=== PATIENT | male | born 1980 | race Two or more races ===

== ENCOUNTER 2025-01-03 08:00 | Emergency (ER) | payer OTHER, MEDICAID, SELFPAY ==
[2025-01-03 08:01] VITALS: BMI 34.0
[2025-01-03 08:25] VITALS: BP 145/83; PULSE 79; RESP 18; TEMP 37; O2SAT 96
--- NOTE | 2025-01-03 08:46 | EDNOTE_ITS ---
Upper Respiratory Inf. RME/HPI General Chief Complaint: Headache Stated Complaint: HEADACHE X 3 DAYS, BODY ACHES, COUGH Time Seen by Provider: 01/03/25 08:23 Arrival date/time: 01/03/25 08:00 This is a 44-year-old male that comes in with complaints of a headache, body aches, sore throat and cough that started 2 days ago. Patient states one of his coworkers had the same symptoms a couple days earlier in the week. Patient denies any past medical history. Related Data Previous Rx's ?Medication ?Instructions ?Recorded ibuprofen 800 mg tablet 800 mg PO Q6H PRN pain #14 t abs 01/03/25 oseltamivir 75 mg capsule (Tamiflu) 75 mg PO BID 5 day s #10 caps 01/03/25 Allergies Allergy/AdvReac Type Severity Reaction Status Date / Time No Known Allergies Allergy Verified 01/03/25 08:04 Course Orders Category Date Time Status Bedside COVID-19 Antigen Test NOW Care 01/03/25 08:46 Active Bedside Influenza A&B Antigen Test NOW Care 01/03/25 08:46 Active Acetaminophen Tab [Tylenol ES Tab] Med 01/03/25 08:46 Once 1,000 mg PO X1 ONE Ibuprofen Tab [Motrin Tab] Med 01/03/25 08:46 Once 800 mg PO X1 ONE Oseltamivir [Tamiflu] Med 01/03/25 08:46 Once 75 mg PO X1 ONE Vital Signs Vital signs: Vital Signs Temperature 98.6 F 01/03/25 08:25 Pulse Rate 79 01/03/25 08:25 Respiratory Rate 18 01/03/25 08:25 Blood Pressure 145/83 H 01/03/25 08:25 Pulse Oximetry (%) 96 01/03/25 08:25 Oxygen Delivery Method Room Air 01/03/25 08:25 Upper Respiratory Infection MDM Narrative MDM Narrative:: Patient was positive for influenza A. Patient will be given Tamiflu. Patient also given Tylenol and ibuprofen. Patient told to drink plenty of fluids and get rest. Patient is to follow-up with primary provider in 1 to 2 days. Come back to emergency room symptoms change or worsen. Medications / Prescriptions Medication administrations:: Medication Administration History Acetaminophen (Acetaminophen 500 Mg Tablet) 1,000 mg PO X1 ONE Stop: 01/03/25 08:47 Ibuprofen (Ibuprofen Tab 400 Mg Tablet) 800 mg PO X1 ONE Stop: 01/03/25 08:47 Oseltamivir Phosphate (Oseltamivir 75 Mg Capsule) 75 mg PO X1 ONE Stop: 01/03/25 08:47 Discharge Plan Plan Patient Disposition: HOME (Self Care) Patient condition on transfer: Stable Prescriptions/Referrals Prescriptions/Med Rec: New oseltamivir [Tamiflu] 75 mg capsule 75 mg PO BID 5 Days Qty: 10 0RF ibuprofen 800 mg tablet 800 mg PO Q6H PRN (Reason: pain) Qty: 14 0RF Problem List Clinical Impression: Influenza A Patient/Caregiver Discharge Instructions Discharge Activity: activity as tolerated Education Materials: ED Influenza (Adult) Additional Instructions: Follow up with primary provider in 1-2 days. Come back to ED if symptoms change or worsen Print Language: Swedish Stand Alone Forms: Rochelle Award Info., Patient Portal Info Letter PA/VENDOR RELATIONSHIP MANAGER Supervising Physician PA/VENDOR RELATIONSHIP MANAGER Supervising Physician: maritza
[2025-01-03] MEDS: ACETAMINOPHEN 500 MG TABLET 1000 MG PO (09:23)
[2025-01-03] MEDS: IBUPROFEN TAB 400 MG TABLET 800 MG PO (09:24)
[2025-01-03] MEDS: OSELTAMIVIR 75 MG CAPSULE PO (09:24)
[2025-01-03 09:27] VITALS: BP 142/80; PULSE 80; RESP 18; TEMP 37; O2SAT 97
== END 2025-01-03 09:32 | disposition home or self-care (01) ==
LOC: SERX 08:54
PROVIDERS: Emergency Provider Emergency Medicine; PCP Family Medicine
DX: J10.1 Influenza due to other identified influenza virus with other respiratory manifestations (principal)
CPT/HCPCS: 87400; 87811; 99283; A9270

== ENCOUNTER 2025-06-14 03:42 | Emergency (ER) | payer OTHER, MEDICAID, SELFPAY ==
[2025-06-14 03:44] VITALS: BMI 33.5
--- NOTE | 2025-06-14 03:47 | PD.EDABDPN ---
ED Abdominal Pain RME/HPI General Chief Complaint: Abdominal Pain Stated complaint: RIGHT UPPER ABD PAIN Time seen by provider: 06/14/25 03:53 Arrival date/time: 06/14/25 03:42 RME / HPI RME / HPI narrative: See [facility] for Dr. Mason's HPI documentation. Related Data Previous Rx's ?Medication ?Instructions ?Recorded ibuprofen 800 mg tablet 800 mg PO Q6H PRN pain #14 tabs 01/03/25 Allergies Allergy/AdvReac Type Severity Reaction Status Date / Time No Known Allergies Allergy Verified 06/14/25 03:43 Review of Systems Review of Systems Systems Reviewed: All systems reviewed, normal except as documented Past Medical History Past Medical History CARDIAC: Negative Congestive Heart Failure RESPIRATORY: Negative Chronic Obstructive Pulmonary Disease (COPD) GENITOURINARY: Negative Renal Disease ENDOCRINE: Negative Diabetes Mellitus Type 1 or Diabetes Mellitus Type 2 Social History SMOKING STATUS: Never smoker ED Exam Narrative Physical exam: See [facility] for Dr. Mason's physical exam documentation. Course Quality Measures none Orders Category Date Time Status Saline [Insert IV] NOW Care 06/14/25 03:48 Active US gall bladder Stat Exams 06/14/25 03:49 Ordered Amylase Stat Lab 06/14/25 04:08 Completed Bilirubin,Direct Stat Lab 06/14/25 04:08 Completed CBC Stat Lab 06/14/25 04:08 Completed CMP [Comprehensive Metabolic Panel] Stat Lab 06/14/25 04:08 Completed Magnesium Stat Lab 06/14/25 04:08 Completed HYDROmorphone INJ [Dilaudid Inj] Med 06/14/25 03:48 Discontinued 1 mg IVP X1 ONE Ketorolac Inj [Toradol Inj] Med 06/14/25 03:48 Discontinued 30 mg IVP X1 ONE Ondansetron Inj [Zofran Inj] Med 06/14/25 03:48 Discontinued 4 mg IVP X1 ONE Sodium Chloride 0.9% 1000 ml [Ns] 1,000 ml Med 06/14/25 03:48 Discontinued IV 999 mls/hr Vital Signs Vital signs: Vital Signs Pulse Rate 98 06/14/25 03:50 Respiratory Rate 20 06/14/25 03:50 Blood Pressure 187/109 H 06/14/25 03:50 Pulse Oximetry (%) 98 06/14/25 03:50 Oxygen Delivery Method Room Air 06/14/25 03:50 Abdominal Pain MDM MDM Narrative MDM Narrative:: This section includes all my notes and documentations, including HPI, PE, and ED course. Cholo Mason MD HPI: 44yo male here with severe upper abdominal pain with nausea and vomiting for the last few hours. Patient ate pizza for dinner. No fever. His pain feels similar to his previous gallbladder attacks. No other complaints reported. ROS: All negative except as documented in HPI. Physical Exam: General: Alert and oriented. In severe pain. Eyes: Conjunctivae and lids clear. ENT: No nasal congestion. Neck: Supple. Heart: RRR. Lungs: No respiratory distress. Good air movement. No rhonchi, wheezing, rales. Abdomen: Soft and severe epigastric and RUQ tenderness. Normal bowel sounds. No distension. No rebound or guarding. Skin: Warm and dry. Neuro: Alert and oriented X 3. I reviewed all returned diagnostic test results. Blood tests unremarkable GB ultrasound is pending. At this point, diagnoses include: Abdominal pain, probably due to biliary colic Treatment here included: Dilaudid 1 mg IV Toradol 30 mg IV Zofran 4 mg IV IV fluid At 6 AM on 06/14/2025, the care of the patient was transferred to Dr. Veliz. Cholo Mason MD Patient data External records reviewed:: [facility] previous records (Per chart review, patient was seen here on 01/03/25 for Influenza.) Clinical information provided by:: patient Social determinants that could affect healthcare access:: none Patient has the following chronic illnesses:: none How is presenting disease/condition affected by chronic disease/condition?: no chronic disease Evaluation data The following diagnostics were reviewed and interpreted by me:: lab results and radiology exam(s) Lab and/or radiology exams considered but not ordered:: none Interpretation Summary: I reviewed all returned diagnostic test results. Blood tests unremarkable GB ultrasound is pending. Medications / Prescriptions Medications or Prescriptions considered but not ordered:: none Medication administrations:: Medication Administration History Discontinued Medications Hydromorphone HCl (Hydromorphone Inj 2 Mg/Ml Vial) 1 mg IVP X1 ONE Stop: 06/14/25 03:49 Last Admin: 06/14/25 04:10 Dose: 1 mg Documented By: BD Sodium Chloride (Ns) 1,000 mls @ 999 mls/hr IV .Q1H1M ONE Stop: 06/14/25 04:48 Last Infusion: 06/14/25 04:51 Dose: Infused Documented By: Admin: 06/14/25 04:09 Dose: 999 mls/hr Documented By: BD Ketorolac Tromethamine (Ketorolac Inj 30 Mg/Ml Vial) 30 mg IVP X1 ONE Stop: 06/14/25 03:49 Last Admin: 06/14/25 04:09 Dose: 30 mg Documented By: BD Ondansetron HCl (Ondansetron Inj 2 Mg/Ml Inj 2 Ml) 4 mg IVP X1 ONE; Protocol Stop: 06/14/25 03:49 Last Admin: 06/14/25 04:09 Dose: 4 mg Documented By: BD Treatment here included: Dilaudid 1 mg IV Toradol 30 mg IV Zofran 4 mg IV IV fluid Consultations Consultation(s) initiated? (list below): No Diagnosis Differential diagnosis abdominal pain: acute appendicitis, calculus of kidney, constipation, diverticulitis, endometriosis, gastroenteritis, pancreatitis, small bowel obstruction and other (Biliary colic, GERD, gastritis, PUD) Most likely diagnosis given after review of the tests above:: Complete diagnostic tests are pending. Admission Indicated Admission indicated?: not indicated Explain why admission is indicated or not indicated:: Complete diagnostic tests are pending. Admission Request Was there a request for admission?: No Disposition Plan Disposition Plan: other (specify) ( At 6 AM on 06/14/2025, the care of the patient was transferred to Dr. Veliz.) Discharge Plan Prescriptions/Referrals Prescriptions/Med Rec: No Action ibuprofen 800 mg tablet 800 mg PO Q6H PRN (Reason: pain) Qty: 14 0RF Referrals: Virgilio Watts MD [Primary Care Provider, Family Practice] - In 1 week Problem List Clinical Impression: Abdominal pain Patient/Caregiver Discharge Instructions Print Language: Kyrgyz
--- NOTE | 2025-06-14 03:49 | XR_ITS ---
Examination: Abdomen sonogram, Limited Date and time of exam: May 2017, 2024, 0519 hrs. Indications: Epigastric pain and vomiting beginning 2:00 AM today. Technique: Real-time higginbotham scale transabdominal sonographic images of the upper abdomen obtained. Findings: 15 mm gallstone Gallbladder wall 0.23 cm no edema Common bile duct 0.3 cm Pancreatic head 3.2 cm Liver 18.0 cm left lobe liver mass 2.8 x 1.1 x 1.8 cm Normal hepatopedal portal venous flow Patent IVC Impression: Cholelithiasis, negative for cholecystitis Mild to moderate hepatomegaly Left lobe liver lesion, recommend MRI abdomen follow-up pre and postcontrast to assess the liver lesion
[2025-06-14 03:50] VITALS: BP 187/109; PULSE 98; RESP 20; O2SAT 98
[2025-06-14 04:00] VITALS: BP 162/97; PULSE 72; RESP 16; TEMP 36.6; O2SAT 98
[2025-06-14] MEDS: ONDANSETRON INJ 2 MG/ML INJ 2 ML 4 MG IVP (04:09)
[2025-06-14] MEDS: KETOROLAC INJ 30 MG/ML VIAL IVP (04:09)
[2025-06-14] MEDS: SODIUM CHLORIDE 0.9% 1000 ML 1,000 ML 999 ML IV (04:09)
[2025-06-14] MEDS: HYDROmorphone INJ 2 MG/ML VIAL 1 MG IVP (04:10)
[2025-06-14 04:18] LABS: Basophils # (Auto) 0.0 Thou/mm3 (0.0-0.2); Basophils % (Auto) 1 % (0-2.5); Eosinophils # (Auto) 0.2 Thou/mm3 (0.0-0.5); Eosinophils % (Auto) 3 % (0-10); Hematocrit 46.8 % (41.0-53.0); Hemoglobin 16.0 g/dL (13.5-16.0); Immature Granulocytes Auto 0.02 Thou/mm3 (0.00-0.00); Lymphocytes # (Auto) 2.5 Thou/mm3 (1.0-4.8); Lymphocytes % (Auto) 41 % (10-50); Mean Corpuscular HGB Conc 34.2 g/dl (31.0-37.0); Mean Corpuscular Hemoglobin 30.8 pg (25.0-35.0); Mean Corpuscular Volume 90 fL (80-100); Monocytes # (Auto) 0.6 Thou/mm3 (0.0-0.8); Monocytes % (Auto) 9 % (0-12); Neutrophils # (Auto) 2.9 Thou/mm3 (1.8-7.7); Neutrophils % (Auto) 46 % (37-80); Nucleated Red Blood Cell # 0.00 Thou/mm3 (0.00-0.00); Nucleated Red Blood Cell % 0 /100 WBC (0); Platelet Count 238 Thou/mm3 (140-440); RDW Standard Deviation 39.6 fL (35.1-43.9); Red Blood Count 5.20 Miln/mm3 (4.50-5.90); White Blood Count 6.3 Thou/mm3 (3.8-10.6)
[2025-06-14 04:55] LABS: Alanine Aminotransferase 23 U/L (10-49); Albumin, Serum 4.6 gm/dL (3.5-5.0); Albumin/Globulin Ratio 1.8 (1.2-2.2); Alkaline Phosphatase 70 U/L (46-116); Amylase 53 U/L (30-118); Anion Gap 12 (7-16); Aspartate Amino Transferase 27 U/L (0-34); BUN/Creatinine Ratio 5 Ratio (12-20); Bilirubin,Direct 0.2 mg/dL (0.0-0.3); Bilirubin,Total 1.1 mg/dL (0.3-1.2); Blood Urea Nitrogen 6 mg/dL (9-23); Calcium 9.3 mg/dL (8.3-10.6); Calcium (Corrected) 9.3 mg/dL (8.5-10.1); Carbon Dioxide 23.9 mMol/L (20.0-31.0); Chloride 105 mMol/L (98-107); Creatinine (Component) 1.1 mg/dL (0.6-1.3); Estimated Creatinine Clearance 93.2 mL/min (>60); Globulin 2.5 gm/dL (2.3-3.5); Glucose 108 mg/dL (74-106); Magnesium 1.8 mg/dL (1.6-2.6); Osmolality,Calculated 279 (275-295); Potassium 3.5 mMol/L (3.4-5.1); Sodium 141 mMol/L (136-145); Total Protein 7.1 gm/dL (5.7-8.2); eGFR > 60 See Note
--- NOTE | 2025-06-14 06:16 | PRELIM_ITS ---
Right upper quadrant abdominal ultrasound. June 14, 2025 0519 hours Clinical history: RUQ tenderness Technique: Grayscale and color flow images of the right upper quadrant are provided. Hepatic and portal veins were also imaged with color flow images. Findings: The liver is increased in echogenicity. The liver demonstrate slight nodular contour. The main portal vein is patent and demonstrates hepatopetal flow.There is a 2.7x1.1x1.8cm hypoechoic lesion with vascularity in the left liver lobe. No intrahepatic biliary ductal dilatation. There louise calculus at the gallbladder neck. Mild sludge is seen in the gallbladder.No gallbladder wall thickening or pericholecystic fluid is seen.The common bile duct is normal in caliber at 3mm. The pancreas is grossly unremarkable to the extent visualized. The inferior vena cava is patent. Impression: Cholelithiasis with a nonmobile/impacted calculus at the gallbladder neck. While additional sonographic evidence of gallbladder wall thickening or pericholecystic fluid is not demonstrated at this time, in the appropriate clinical setting, acute cholecystitis cannot be entirely excluded. Suggest follow-up with HIDA scan, if clinically indicated. Fatty infiltration of the liver. Indeterminate 2.7x1.1x1.8cm hypoechoic lesion in the left liver lobe. Recommend further evaluation with untravenous CT/MRI if clinically indicated. Report Electronically Signed By: Violet Moya 06/14/2025 6:16:18 AM [EST]
[2025-06-14 07:30] VITALS: BP 124/77; PULSE 67; RESP 17; TEMP 36.4; O2SAT 95
--- NOTE | 2025-06-14 07:30 | PC.NURSE ---
Pt. here from home to room 19, pt. spouse is bedside, pt. states he had mid upper abdominal pain that started yesterday, pt. states this morning he vomited. Pt. states at this time the pain is gone after he received the medication. Pt. resting in bed with his eyes closed, pt. snoring occasionally. Warm blankets given to spouse, pt. states he doesn't need a warm blanket at this time.
--- NOTE | 2025-06-14 12:52 | PD.EDABDPN ---
ED Abdominal Pain RME/HPI General Chief Complaint: Abdominal Pain Stated complaint: RIGHT UPPER ABD PAIN Time seen by provider: 06/14/25 03:53 Arrival date/time: 06/14/25 03:42 RME / HPI RME / HPI narrative: See MDM for Dr. Mason's HPI documentation. Related Data Previous Rx's ?Medication ?Instructions ?Recorded ibuprofen 800 mg tablet 800 mg PO Q6H PRN pain #14 tabs 01/03/25 Allergies Allergy/AdvReac Type Severity Reaction Status Date / Time No Known Allergies Allergy Verified 06/14/25 03:43 Course Orders Category Date Time Status Saline [Insert IV] NOW Care 06/14/25 03:48 Active US gall bladder Stat Exams 06/14/25 03:49 Completed Amylase Stat Lab 06/14/25 04:08 Completed Bilirubin,Direct Stat Lab 06/14/25 04:08 Completed CBC Stat Lab 06/14/25 04:08 Completed CMP [Comprehensive Metabolic Panel] Stat Lab 06/14/25 04:08 Completed Magnesium Stat Lab 06/14/25 04:08 Completed HYDROmorphone INJ [Dilaudid Inj] Med 06/14/25 03:48 Discontinued 1 mg IVP X1 ONE Ketorolac Inj [Toradol Inj] Med 06/14/25 03:48 Discontinued 30 mg IVP X1 ONE Ondansetron Inj [Zofran Inj] Med 06/14/25 03:48 Discontinued 4 mg IVP X1 ONE Sodium Chloride 0.9% 1000 ml [Ns] 1,000 ml Med 06/14/25 03:48 Discontinued IV 999 mls/hr Vital Signs Vital signs: Vital Signs Pulse Rate 98 06/14/25 03:50 Respiratory Rate 20 06/14/25 03:50 Blood Pressure 187/109 H 06/14/25 03:50 Pulse Oximetry (%) 98 06/14/25 03:50 Oxygen Delivery Method Room Air 06/14/25 03:50 Abdominal Pain [facility] Narrative [facility] Narrative:: Patient is a 44-year-old male is in the emerged primary concerns for abdominal pain. Prior provider evaluated patient. Ordered labs and right upper quadrant ultrasound. Labs without any acute hematologic or significant metabolic abnormality, no transaminitis, right upper quadrant ultrasound with evidence of cholelithiasis negative for cholecystitis. Patient with fatty liver. Patient also notified that he has a left lobe liver lesion, advised to follow-up with his primary care doctor discussed these findings, as he would benefit from advanced imaging as an outpatient.. Patient on my exam has no pain. Tolerating oral intake not in distress. Will discharge to home with close return precautions follow-up with primary care doctor Patient data External records reviewed:: [facility] previous records Clinical information provided by:: patient Social determinants that could affect healthcare access:: none Patient has the following chronic illnesses:: Cholelithiasis How is presenting disease/condition affected by chronic disease/condition?: exacerbated by Evaluation data The following diagnostics were reviewed and interpreted by me:: lab results and radiology exam(s) Lab and/or radiology exams considered but not ordered:: None Interpretation Summary: See [facility] Medications / Prescriptions Medications or Prescriptions considered but not ordered:: None Medication administrations:: Medication Administration History Discontinued Medications Hydromorphone HCl (Hydromorphone Inj 2 Mg/Ml Vial) 1 mg IVP X1 ONE Stop: 06/14/25 03:49 Last Admin: 06/14/25 04:10 Dose: 1 mg Documented By: BD Sodium Chloride (Ns) 1,000 mls @ 999 mls/hr IV .Q1H1M ONE Stop: 06/14/25 04:48 Last Infusion: 06/14/25 04:51 Dose: Infused Documented By: Admin: 06/14/25 04:09 Dose: 999 mls/hr Documented By: BD Ketorolac Tromethamine (Ketorolac Inj 30 Mg/Ml Vial) 30 mg IVP X1 ONE Stop: 06/14/25 03:49 Last Admin: 06/14/25 04:09 Dose: 30 mg Documented By: BD Ondansetron HCl (Ondansetron Inj 2 Mg/Ml Inj 2 Ml) 4 mg IVP X1 ONE; Protocol Stop: 06/14/25 03:49 Last Admin: 06/14/25 04:09 Dose: 4 mg Documented By: BD See above Consultations Consultation(s) initiated? (list below): No Diagnosis Differential diagnosis abdominal pain: other Most likely diagnosis given after review of the tests above:: Symptomatic cholelithiasis Admission Indicated Admission indicated?: not indicated Admission Request Was there a request for admission?: No Disposition Plan Disposition Plan: Discharge Discharge Attestation Discharge Attestation: The patient and all family members were given an opportunity to ask questions and understood the discharge instructions. Discharge instructions specifically effects, indications for sooner follow up or return to the emergency department, and the expected course of current diagnosis. Patient condition: Stable Discharge Plan Plan Patient Disposition: HOME (Self Care) Prescriptions/Referrals Prescriptions/Med Rec: No Action ibuprofen 800 mg tablet 800 mg PO Q6H PRN (Reason: pain) Qty: 14 0RF Referrals: Virgilio Watts MD [Primary Care Provider, Family Practice] - In 1 week Problem List Clinical Impression: Abdominal pain, Cholelithiasis Patient/Caregiver Discharge Instructions Education Materials: ED Gallstones with Biliary Colic Additional Instructions: Please follow-up with your primary care doctor within 1 to 2 days. Please request follow-up with the surgeon for further workup and management of your symptomatic cholelithiasis. I would recommend that you avoid fatty foods alcohol smoking. Print Language: New Zealander Stand Alone Forms: Rochelle Award Info., Patient Portal Info Letter
--- NOTE | 2025-06-14 13:27 | EDNOTE_ITS ---
Emergency Room Addendum Addendum Narrative: 0600: Care assumed from Dr. Mason, the previous shift emergency physician. Past medical, surgical, social and family history reviewed. Vitals and home medications reviewed. I will assume the care of the patient at this time, pending US, labs and final disposition. Please refer to the emergency department record for history and examination from initial visit.?The following addendum documentation note is intended to reflect any pending information, findings, or radiology results not included in the patient?s initial chart. Patient is a 44-year-old male is in the emerged primary concerns for abdominal pain. Prior provider evaluated patient. Ordered labs and right upper quadrant ultrasound. Labs without any acute hematologic or significant metabolic abnormality, no transaminitis, right upper quadrant ultrasound with evidence of cholelithiasis n egative for cholecystitis. Patient with fatty liver. Patient also notified that he has a left lobe liver lesion, advised to follow-up with his primary care doctor discussed these findings, as he would benefit from advanced imaging as an outpatient.. Patient on my exam has no pain. Tolerating oral intake not in distress. Will discharge to home with close return precautions follow-up with primary care doctor.
== END 2025-06-14 14:49 | disposition home or self-care (01) ==
PROVIDERS: Emergency Provider Emergency Medicine; PCP Family Medicine
DX: R10.11 Right upper quadrant pain (principal); R11.2 Nausea with vomiting, unspecified
CPT/HCPCS: 36415; 76705; 80053; 82150; 82248; 83735; 85025; 96361; 96374; 96375; 99283; J1171; J1885; J2405; J7030